=== PATIENT | male | born 1980 | race Caucasian/White ===

== ENCOUNTER 2017-09-18 12:29 | Emergency (ER) | payer SELFPAY ==
[~2017-09-18] VITALS: Ht 170.2 cm; Wt 86.2 kg
[~2017-09-18 12:29] MED LIST: ALEVE; GLUXR500 PO
[2017-09-18 12:44] VITALS: BP_SYST 114
[2017-09-18 17:44] VITALS: BP_SYST 124
== END 2017-09-18 17:44 | disposition home or self-care (01) ==
LOC: SED 12:29
DX: J06.9 Acute upper respiratory infection, unspecified (principal)
CPT/HCPCS: 36415; 86710; 99284